=== PATIENT | female | born 1960 | race Caucasian/White ===

== ENCOUNTER 2024-06-25 10:43 | Emergency (ER) | payer OTHER, SELFPAY ==
[2024-06-25 10:57] VITALS: BP 146/95
[2024-06-25] MEDS: DILAUDID 0.5 MG IV ×2 (13:51→16:44)
[2024-06-25] MEDS: ZOFRAN 4 MG IV (13:51)
[2024-06-25 14:34] VITALS: BP 113/75
[2024-06-25 14:57] VITALS: BP 113/73
[2024-06-25 15:00] VITALS: BP 118/78
[2024-06-25 15:05] VITALS: BMI 31.1
--- NOTE | 2024-06-25 15:36 | ED.GENMED ---
History of Present Illness
<Vanessa Aguilar PA-C - Last Filed: 06/26/24 11:01>
General
Chief Complaint: Musculo-Skeletal Complaint
Source: patient
Exam Limitations: none
Time Seen by Provider: 06/25/24 12:23
Nursing documentation reviewed up to this point in time: agreed with
History of Present Illness
History of Present Illness:
pt is a 63 y/o F with h/o HTN, HLD, hypothyroid
here with left inguinal pain after falling off horse
pt says the horse bucked her forward over the horse and she landed on her back and did strike her head
no loc
has pretty severe L hip/groin pain, worse with weight bearing
was able to get up but needs a lot of help, is having a lot of pain with walking
no weakness/numbness in legs
no incnotinence
pt has also developed some mild right sided low back pain as well
h/o microdiscectomies in the past lumbar spimne
no blood thinners
Past History
<Vanessa Aguilar PA-C - Last Filed: 06/26/24 11:01>
Past History
ED Past Medical History: None
ED Past Surgical History: Other (Kidney stones with lithotripsy)
Social History
Tobacco: Non-smoker
Alcohol: Occasional
Personal:
Living: with family
Review of Systems
<Vanessa Aguilar PA-C - Last Filed: 06/26/24 11:01>
Review of Systems
Allergies reviewed?: Yes
All Other Systems: Not applicable
Phy Exam
<BARBRA Bright Last Filed: 06/26/24 11:01>
Physical Exam
Physical Exam:
GENERAL: Alert , uncomfortable with movement
HEAD: NCAT
no signs of trauma
NECK: no midline tenderness, active ROM intact, no paraspinal muscle tenderness;
EYE: pupils equal and reactive, EOMs intact.
ENT: o/p clr, mmm. no hemotympanum
CARDIAC: Regular rate and rhythm, no edema
LUNGS: Clear breath sounds bilaterally, no acute respiratory distress, no wheezes/rales/rhonchi
ABDOMEN: Soft, without focal tenderness, no r/g, no cvat
NEUROLOGICAL: Alert and oriented, no focal neuro deficits, CN intact, 5/5 strength, sensation intact
SKIN: Warm and dry,
normal skin of L pelvis/groin/back/buttocks
MUSCULOSKELETAL: very painful rom of the L hip, david rotation an dflexion
pt feels better if she presses in her L groin area first before flexing her hip
no posterior pelis tendenress
no midline back tendenress
neg straight leg raise
normal sensatiom
PSYCH: Normal and appropriate interaction.
Course
<Vanessa Aguilar PA-C - Last Filed: 06/26/24 11:01>
Orders/Labs/Results
Orders:
Orders
06/25/24 11:01
CR Hip - LT w/wo Pel 2-3 Vw* Urgent
Comment:
Reason For Exam: injury
Include a pelvis x-ray?: Yes
06/25/24 11:02
CT Head W/o Iv Contrast Urgent
Comment:
Reason For Exam: head injury
06/25/24 13:33
CT Pelvis W/o Iv Contrast Urgent
Comment:
Reason For Exam: left pelvis pain severe, unable ot ambulate
06/25/24 13:34
HYDROmorphone [Dilaudid] 0.5 mg IV NOW STA
Ondansetron Injectable [Zofran] 4 mg IV NOW STA
06/25/24 16:35
Ketorolac [Toradol] 15 mg IV NOW STA
06/25/24 16:43
HYDROmorphone [Dilaudid] 0.5 mg .ROUTE .STK-MED ONE
06/25/24 16:44
HYDROmorphone [Dilaudid] 0.5 mg IV NOW STA
06/25/24 18:33
Oxycodone [Roxicodone] 5 mg PO NOW STA
06/25/24 18:35
HYDROmorphone [Dilaudid] 0.5 mg IM NOW STA
Vital Signs
Initial and Last Documented VS:
Initial Vital Signs
Temp Pulse Resp BP Pulse Ox
98.3 F 68 20 146/95 97
06/25/24 10:57 06/25/24 10:57 06/25/24 10:57 06/25/24 10:57 06/25/24 10:57
Last Documented Vital Signs
Temp Pulse Resp BP Pulse Ox
98.3 F 61 14 154/85 95
06/25/24 10:57 06/25/24 14:34 06/25/24 14:34 06/25/24 18:56 06/25/24 15:30
<Neto Dee MD - Last Filed: 06/25/24 18:42>
Orders/Labs/Results
Orders:
Orders
06/25/24 11:01
CR Hip - LT w/wo Pel 2-3 Vw* Urgent
Comment:
Reason For Exam: injury
Include a pelvis x-ray?: Yes
06/25/24 11:02
CT Head W/o Iv Contrast Urgent
Comment:
Reason For Exam: head injury
06/25/24 13:33
CT Pelvis W/o Iv Contrast Urgent
Comment:
Reason For Exam: left pelvis pain severe, unable ot ambulate
06/25/24 13:34
HYDROmorphone [Dilaudid] 0.5 mg IV NOW STA
Ondansetron Injectable [Zofran] 4 mg IV NOW STA
06/25/24 16:35
Ketorolac [Toradol] 15 mg IV NOW STA
06/25/24 16:43
HYDROmorphone [Dilaudid] 0.5 mg .ROUTE .STK-MED ONE
06/25/24 16:44
HYDROmorphone [Dilaudid] 0.5 mg IV NOW STA
06/25/24 18:33
Oxycodone [Roxicodone] 5 mg PO NOW STA
06/25/24 18:35
HYDROmorphone [Dilaudid] 0.5 mg IM NOW STA
Vital Signs
Initial and Last Documented VS:
Initial Vital Signs
Temp Pulse Resp BP Pulse Ox
98.3 F 68 20 146/95 97
06/25/24 10:57 06/25/24 10:57 06/25/24 10:57 06/25/24 10:57 06/25/24 10:57
Last Documented Vital Signs
Temp Pulse Resp BP Pulse Ox
98.3 F 61 14 154/85 95
06/25/24 10:57 06/25/24 14:34 06/25/24 14:34 06/25/24 18:56 06/25/24 15:30
<Vanessa Aguilar PA-C - Last Filed: 06/26/24 11:01>
MDM/Problems Addressed
Differential Diagnosis Includes:
pelvic fracture, hip fracture, inguinal strain, muscle spasm, lumbar fracture, disc hernaition
MDM/Problems Addressed:
3 y/o F wuith h/o previous disc herniations
here after being bucked off a horse
fell onto her back/buttocks and did strike her head without LOC
having pretty severe L anterior inguinal pain that is worse with hip movement and weight bearing
she is not having any radicular pain, weakness, numbness in the legs, incontinnece, fever
pt was comfortable with being still but having pretty severe pain with movement and had already had xrays indep reviewed which were neg and ct head neg
igven how uncomfortable she was, d/w ed attending and ordered CT pelvis without contrast to look for occult fx
at that time she was not having midlin back tenderness but was starting to feel sore in her lower back and upper buttocks on the right
she has normal sensation and neg straight leg raise with normal sensation and strength; no cauda equina symptoms
she was able to get up with my help to the bathroom to void normally
given iv pain meds which didn't help pain at all
she had increasing pain after returning from ct scan
the ct does nt show any signs of fracture in her hips/pelvis but severe lower spinal disc disease
no chest/abdominal pain
no toruble breathing
pt was given another round of dilaudid and a dose of toradol for pain and asked to see the physician to discuss results
she was complainign of more bakc pain and since only the very lower L spine was imaged on ct scan, ordered plain lumbar xrays
again pt has no signs of cauda equina
the xrays were refused by the patient because she says she didn't want more radiation
Turns out the patient feels comfortable enough to go home. She was seen by ED attending who felt other than getting a lumbar films of it was a satisfactory workup. She did not have any signs of cauda equina. Will offer her prescription for pain
medication and have her follow-up with her family doctor
<Vanessa Aguilar PA-C - Last Filed: 06/26/24 11:01>
*Critical Care Note
Total Time (30-74mins, 75-104mins- exclusive of procedures): Not Applicable
ED Attending Note
<Vanessa Aguilar PA-C - Last Filed: 06/26/24 11:01>
-
Portions of this chart may have been created with voice recognition software.� Occasional wrong word or��sound alike� substitutions may have occurred due to the inherent limitations of voice recognition software.
<Neto Dee MD - Last Filed: 06/25/24 18:42>
ED Attending Note
Patient seen and examined by attending physician: Yes
ED Attending Note:
I have seen and evaluated the patient with a [id number] encounter. I have spoken to the advance practicer provider and involved in the medical history, the physical exam, medical decision making.
Evaluation and management service: agree unless noted differently below.
Results interpretation: agree unless noted differently below.
Focused HPI: 63-year-old female with a past medical history of hypothyroidism, hyperlipidemia, hypertension who presents to the emergency room for evaluation of left groin pain after a fall horse. Patient reports that she was thrown from horse
forward and fell onto her left hip. She says that she hit the back of her head but she was wearing a helmet. She did not lose consciousness. She says she has had significant pain in the medial aspect of the left thigh/left groin since. She also
complains of some mild right low back pain and pain in the right buttock. She denies any headache. Denies any neck pain. Denies any chest or abdominal pain. No nausea or vomiting. Denies any numbness or weakness to the extremities. She is not
on blood thinners.
Physical exam: Primary survey intact�airway patent, bilateral breath sounds present, stable vitals with good pulses in all extremities, GCS 15; secondary survey significant for mild tenderness along the inguinal crease on the left side without any
ecchymosis or swelling; she has mild midline tenderness L5 paraspinal tenderness bilaterally L5-S1; she has no signs of trauma to the head, no cervical spine tenderness, extremities atraumatic
Medical Decision Makin-year-old female presents after fall worse as described above. Primarily complaining of left groin pain although also has some mild pain in the low back. Vitals normal. Exam as above. Sent for a CT of the head which
was negative, x-ray of the hip no acute pathology noted given her significant pain sent for a CT of the pelvis; CT pelvis also negative for any acute pathology. Suspect likely muscular tear/strain causing her groin pain; back pain could be related
to herniated disc with radiation towards the buttock versus myofascial strain. No red flag symptoms. Patient's pain was controlled here. She did require multiple rounds of pain medication and was offered admission (actually recommended for
admission) for pain control and consideration for rehab given degree of pain. Patient feels well enough to go home and does not wish to stay in the hospital. She will follow-up with orthopedics as an outpatient. Spoke about return precautions all
questions answered.
Discharge Plan
Departure
Patient Disposition: Home (Routine Discharge)
Date of Disposition: 06/25/24
Time of Disposition: 18:27
Patient with high blood pressure during this ER visit?: No
Condition: Fair
Covid-19: Not Applicable
Discharge Problem:
DDD (degenerative disc disease), lumbar, Fall, Groin strain
Instructions: Groin Strain (DC), Degenerative Disc Disease ED
Prescriptions:
New
oxycodone 5 mg tablet
5 mg PO Q8H PRN (Reason: Pain) Qty: 15 0RF
ibuprofen 600 mg tablet
600 mg PO Q8H PRN (Reason: Pain) Qty: 20 0RF
No Action
atorvastatin 10 MG tablet
10 mg PO DAILY
Patient Comments:
3 times a week
levothyroxine 75 MCG tablet
75 mcg PO DAILY
hydrochlorothiazide 25 MG tablet
25 mg PO DAILY
Referrals:
Boaz Jon MD [Active] - Follow up in 5-7 days
Ken Ng MD [Active] - Follow up in 5-7 days (ortho)
UNKNOWN - PT DOES,NOT KNOW [Family Provider] -
Activity Restrictions/Additional Instructions:
Your imaging today shows degenerative changes in your lower lumbar spine but no fractures, your CAT scan also showed no fractures of your pelvis or hip bones. Your inguinal pain is likely from a strain of the groin. You should apply ice or heat to
this area, whichever feels better. Take Tylenol 3 times a day, take ibuprofen 600 mg with food 3 times a day and in addition if the pain is severe you can try an oxycodone 5 mg every 8 hours as needed. This is a narcotic, you are not supposed to
drink or drive a vehicle while on this medication. Please use a stool softener while on this medication to prevent constipation. You should follow-up with orthopedic/spine for further evaluation. You may end up requiring an MRI but you had no
signs of a spinal cord emergency today.
Should you develop weakness, numbness down your legs, incontinence of urine or inability to urinate, fever, severe back pain to which she cannot walk you need to return to the ER immediately. Otherwise follow-up with both your doctor and the
specialist
Interventions
Interventions:
*Risk Screen - Suicide Last Done: 06/25/24 10:57
*General Assessment Last Done: 06/25/24 10:57
*Neglect/Abuse Screening Last Done: 06/25/24 10:57
ED- Fall Risk Assessment Last Done: 06/25/24 11:42
*ED COVID-19 Vaccine History Last Done: 06/25/24 18:56
*Nursing Disposition Last Done: 06/25/24 18:56
ED-Musculoskeletal Assessment Last Done: 06/25/24 11:42
Discharge Date and Time
Discharge Date/Time: 06/25/24 18:56
Print Language: IRISH
[2024-06-25] MEDS: TORADOL 15 MG IV (16:39)
[2024-06-25] MEDS: DILAUDID 0.5 MG IM (18:43)
[2024-06-25] MEDS: ROXICODONE 5 MG PO (18:47)
[2024-06-25 18:56] VITALS: BP 154/85
== END 2024-06-25 18:56 | disposition home or self-care (01) ==
LOC: EMR 10:43
PROVIDERS: EMERGENCY PHYSICIAN Emergency Medicine
DX: S39.011A Strain of muscle, fascia and tendon of abdomen, initial encounter (principal); M51.36 Other intervertebral disc degeneration, lumbar region; V80.010A Animal-rider injured by fall from or being thrown from horse in noncollision accident, initial encounter; I10 Essential (primary) hypertension; E78.00 Pure hypercholesterolemia, unspecified; E03.9 Hypothyroidism, unspecified
CPT/HCPCS: 99284; 96374; 96375 ×2; 96376; 96372; 70450; 72192; 73502

== ENCOUNTER → 2024-09-27 15:06 | Outpatient (REF) | payer OTHER, SELFPAY | LOC: WDC 15:06 | PROVIDERS: ATTENDING PHYSICIAN Internal Medicine | DX: Z12.31 Encounter for screening mammogram for malignant neoplasm of breast (principal) | CPT/HCPCS: 77063; 77067 ==

== ENCOUNTER → 2024-10-20 08:23 | Outpatient (REF) | payer OTHER, SELFPAY | LOC: RAD 08:23 | PROVIDERS: ATTENDING PHYSICIAN Internal Medicine | DX: Z12.31 Encounter for screening mammogram for malignant neoplasm of breast (principal); Z13.820 Encounter for screening for osteoporosis | CPT/HCPCS: 77080 ==

== ENCOUNTER → 2025-03-28 12:32 | Outpatient (REF) | payer OTHER, SELFPAY ==
[2025-03-28 13:15] LABS: % Basophils 0.3 % (0-2); % Eosinophils 3.9 % (0-6); % Immature Granulocytes 0.3 % (0-0.5); % Lymphocytes 46.4 % (20.5-51.1); % Monocytes 8.1 % (1.7-9.3); Absolute Eosinophils 0.3 10^3/uL (0-0.7); Absolute Lymphocytes 3.6 10^3/uL (1.2-3.4); Absolute Monocytes 0.6 10^3/uL (0.1-0.6); Absolute Neutrophils 3.2 10^3/uL (1.4-6.5); Hematocrit 38.1 % (37.0-47.0); Hemoglobin 13.1 g/dL (12.0-16.0); Mean Corp Hgb Conc. 34.4 g/dL (33.0-37.0); Mean Corpuscular Volume 90.3 fL (81.0-99.0); Mean Platelet Volume 9.9 fL (7.4-10.4); Nucleated Red Blood Cells % 0 %; Platelet Count 252 10^3/uL (130-400); Red Blood Cell Count 4.22 10^6/uL (4.20-5.40); Red Cell Dist. Width 12.3 % (11.5-14.5); White Blood Cell Count 7.7 10^3/uL (4.8-10.8)
[2025-03-28 13:44] LABS: Blood Urea Nitrogen 22 mg/dl (7-17); Calcium 10.1 mg/dl (8.4-10.2); Carbon Dioxide 32 mmol/L (22-30); Chloride 101 mmol/L (98-107); Glucose 114 mg/dl (70-99); Potassium 3.9 mmol/L (3.5-5.1); Sodium 142 mmol/L (135-145); eGFR > 60.00
== END ==
LOC: RCS 12:32
PROVIDERS: ATTENDING PHYSICIAN Specialist; FAMILY PHYSICIAN Internal Medicine
DX: Z01.818 Encounter for other preprocedural examination (principal)
CPT/HCPCS: 36415; 80048; 85025; 93005

== ENCOUNTER → 2025-10-22 06:52 | Outpatient (REF) | payer OTHER, SELFPAY | LOC: MRI 3T 06:52 | PROVIDERS: ATTENDING PHYSICIAN Specialist; FAMILY PHYSICIAN Internal Medicine | DX: M25.561 Pain in right knee (principal) | CPT/HCPCS: 73721 ==

== ENCOUNTER → 2025-10-31 07:04 | Outpatient (REF) | payer OTHER, SELFPAY | LOC: MRI 3T 07:04 | PROVIDERS: ATTENDING PHYSICIAN Specialist; FAMILY PHYSICIAN Internal Medicine | DX: M25.562 Pain in left knee (principal) | CPT/HCPCS: 73721 ==